=== PATIENT | female | born 1965 | race African-American/Black ===

== ENCOUNTER 2021-08-27 09:13 | Emergency (ER) | payer OTHER ==
[2021-08-27 09:33] VITALS: BMI 40.8
[2021-08-27] MEDS ORDERED: CASIRIVIMAB/IMDEVIMAB 10 ML in SODIUM CHLORIDE 100 ML IVPB ONE (09:56)
[2021-08-27 13:59] VITALS: BP 138/64; PULSE 80; TEMP 99.2
== END 2021-08-27 13:59 | disposition home or self-care (01) ==
LOC: JCOVINFU 09:13
DX: U07.1 COVID-19 (principal)
CPT/HCPCS: 99284-25; Q0240

== ENCOUNTER 2024-04-22 12:52 | Inpatient (IN) | payer OTHER ==
[2024-04-22 14:08] LABS: BASO % 0.7 % (0-2.0); EOS % 2.2 % (0-4.5); HEMATOCRIT 30.5 % (32.4-45.2); HEMOGLOBIN 9.8 GM/dL (10.7-15.3); LYMPH % 11.6 % (8-40); MCH 25.3 pg (25.7-33.7); MEAN CELL VOLUME 79.3 fl (80-96); MEAN PLT VOLUME 7.8 fl (7.5-11.1); NEUT % 78.5 % (42.8-82.8); PLATELET COUNT 269 10^3/uL (134-434); RBC 3.85 M/mm3 (3.60-5.2); RDW 19.6 % (11.6-15.6); VENOUS BASE EXCESS -10.6 mmol/L (-2-2); VENOUS O2 SATURATION 60.7 % (70-80); VENOUS PH 7.288 (7.310-7.410); WHITE BLOOD COUNT 11.6 K/mm3 (4.0-10.0)
[2024-04-22 14:34] LABS: CHLORIDE 104 mmol/L (98-107); POTASSIUM 5.8 mmol/L (3.5-5.1); SODIUM 138 mmol/L (136-145)
[2024-04-22 14:36] LABS: CALCIUM 8.4 mg/dL (8.5-10.1)
[2024-04-22 14:37] LABS: ALBUMIN 3.4 g/dl (3.4-5.0); ANION GAP 17 mmol/L (4-13); CO2 17 mmol/L (21-32); GLUCOSE,RANDOM 135 mg/dL (74-106); MAGNESIUM 2.3 mg/dL (1.8-2.4)
[2024-04-22 14:40] LABS: CREATININE 11.4 mg/dL (0.55-1.3); PHOSPHOROUS 8.1 mg/dL (2.5-4.9); SGOT/AST 15 U/L (15-37); SGPT/ALT 16 U/L (13-61)
[2024-04-22 14:41] LABS: BILIRUBIN,TOTAL 0.5 mg/dL (0.2-1); TOT PROT 7.4 g/dl (6.4-8.2)
[2024-04-22 14:43] LABS: ALK PHOS 162 U/L (45-117)
[2024-04-22] MEDS ORDERED: ACETAMINOPHEN INJECTION 100 ML IVPB ONE (15:02)
[2024-04-22] MEDS: ACETAMINOPHEN 1000 MG/100 ML BAG IVPB ONE (15:07)
[2024-04-22 15:25] LABS: N-TERMINAL BNP 56908.6 pg/ml (5-125)
[2024-04-22] MEDS: DEXTROSE 50%-WATER - 25 GM/50 ML VIAL IVPUSH ONE (15:40)
[2024-04-22] MEDS ORDERED: CALCIUM GLUCONATE 10% - 1,000 MG/10 ML VIAL ONE (15:41)
[2024-04-22] MEDS ORDERED: DEXTROSE 50%-WATER 25 GM/50 ML DISP.SYRIN ONE (15:41)
[2024-04-22] MEDS ORDERED: INSULIN REGULAR HUMAN 100 UNITS/ML *VIAL ONE (15:42)
[2024-04-22] MEDS ORDERED: ALBUTEROL SO4 2.5/IPRATROPIUM 0.5 INH SOL 3 ML VIAL.NEB. NEB ONE (15:48)
[2024-04-22] MEDS ORDERED: SODIUM ZIRCONIUM CYCLOSILICATE (LOKELMA) 10 GM PACKET ONE (15:52)
[2024-04-22] MEDS: INSULIN REGULAR HUMAN 100 UNITS/ML *VIAL IVPUSH ONE (16:05)
[2024-04-22] MEDS: DEXTROSE 50%-WATER 25 GM/50 ML DISP.SYRIN IVPUSH ONE (16:05)
[2024-04-22] MEDS: ALBUTEROL SO4 2.5/IPRATROPIUM 0.5 INH SOL 3 ML VIAL.NEB. NEB SCH (16:06)
[2024-04-22] MEDS: CALCIUM GLUCONATE 10% - 1,000 MG/10 ML VIAL IVPUSH ONE (16:06)
[2024-04-22] MEDS: SODIUM ZIRCONIUM CYCLOSILICATE (LOKELMA) 5 GM PACKET PO ONE (16:06)
[2024-04-22] MEDS ORDERED: ceFAZolin SODIUM 1 GM VIAL ONE (16:14)
[2024-04-22] MEDS: CEFAZOLIN 1 GM in DEXTROSE 5%-WATER - 50 ML IVPB ONE (16:20)
[2024-04-22] MEDS ORDERED: SODIUM CHLORIDE 250 ML IV PRN (16:27)
[2024-04-22] MEDS: HEPARIN NA (PORCINE) 5,000 UNITS/ML 1ML VIAL IVPUSH ONE (17:05)
[2024-04-22] MEDS: EPOETIN ALFA-EPBX 4,000 UNIT/ML VIAL SQ ONE (18:17)
[2024-04-22 20:37] VITALS: BMI 41.5
[2024-04-22] MEDS: hydrALAZINE HCL 50 MG TABLET (FP) PO SCH (22:10)
[2024-04-22] MEDS: INSULIN ASPART SLIDING SCALE (NOVOLOG) 1 VIAL SQ SCH (22:10)
[2024-04-22] MEDS: ATORVASTATIN CA 10 MG TABLET (FP) PO SCH (22:10)
[2024-04-22] MEDS: ACETAMINOPHEN 325 MG TABLET (FP) PO ONE (23:53)
[2024-04-23] MEDS: ISOSORBIDE MONONITRATE 60 MG TAB.SR.24H (FP) PO SCH (10:35)
[2024-04-23] MEDS: ACETAMINOPHEN 1000 MG/100 ML BAG IVPB PRN (11:49)
[2024-04-23] MEDS: CEFTRIAXONE 1 GM in DEXTROSE 5%-WATER - 50 ML IVPB SCH (18:02)
[2024-04-24] MEDS ORDERED: SODIUM CHLORIDE 250 ML IV PRN (09:10)
[2024-04-24] MEDS: HEPARIN NA (PORCINE) 5,000 UNITS/ML 1ML VIAL IVPUSH ONE (09:20)
[2024-04-24 09:45] LABS: HEMATOCRIT 29.5 % (32.4-45.2); HEMOGLOBIN 9.6 GM/dL (10.7-15.3); MCH 25.5 pg (25.7-33.7); MCHC 32.6 g/dl (32.0-36.0); MEAN CELL VOLUME 78.2 fl (80-96); MEAN PLT VOLUME 7.5 fl (7.5-11.1); PLATELET COUNT 226 10^3/uL (134-434); RBC 3.77 M/mm3 (3.60-5.2); RDW 19.5 % (11.6-15.6); WHITE BLOOD COUNT 9.3 K/mm3 (4.0-10.0)
[2024-04-24 10:00] LABS: CHLORIDE 99 mmol/L (98-107); POTASSIUM 4.8 mmol/L (3.5-5.1); SODIUM 136 mmol/L (136-145)
[2024-04-24 10:06] LABS: ANION GAP 14 mmol/L (4-13); BLOOD UREA NITROGEN 52.3 mg/dL (7-18); CO2 23 mmol/L (21-32)
[2024-04-24 10:07] LABS: GLUCOSE,RANDOM 112 mg/dL (74-106)
[2024-04-24 10:10] LABS: SGOT/AST 17 U/L (15-37)
[2024-04-24 10:11] LABS: CREATININE 8.8 mg/dL (0.55-1.3); SGPT/ALT 11 U/L (13-61); TOT PROT 6.7 g/dl (6.4-8.2)
[2024-04-24 10:13] LABS: BILIRUBIN,TOTAL 0.6 mg/dL (0.2-1)
[2024-04-24 10:14] LABS: ALK PHOS 136 U/L (45-117)
[2024-04-24] MEDS: EPOETIN ALFA-EPBX 4,000 UNIT/ML VIAL SQ ONE (10:54)
[2024-04-24] MEDS: ACETAMINOPHEN 1000 MG/100 ML BAG IVPB PRN (16:20)
[2024-04-25] MEDS ORDERED: SODIUM CHLORIDE 250 ML IV PRN (13:05)
[2024-04-25 18:38] LABS: CHOLESTEROL 113 mg/dL (50-200)
[2024-04-25 18:40] LABS: LDL CHOLESTEROL (ONLY SJRH) 47 mg/dL (5-100)
[2024-04-25 18:41] LABS: HDL CHOLESTEROL 49 mg/dL (40-60)
[2024-04-26 09:14] LABS: HEMATOCRIT 28.5 % (32.4-45.2); HEMOGLOBIN 9.1 GM/dL (10.7-15.3); MCH 25.5 pg (25.7-33.7); MCHC 31.8 g/dl (32.0-36.0); MEAN CELL VOLUME 80.2 fl (80-96); MEAN PLT VOLUME 7.8 fl (7.5-11.1); PLATELET COUNT 242 10^3/uL (134-434); RBC 3.56 M/mm3 (3.60-5.2); RDW 18.8 % (11.6-15.6); WHITE BLOOD COUNT 8.7 K/mm3 (4.0-10.0)
[2024-04-26 09:33] LABS: CHLORIDE 97 mmol/L (98-107); POTASSIUM 4.3 mmol/L (3.5-5.1); SODIUM 135 mmol/L (136-145)
[2024-04-26 09:39] LABS: CALCIUM 9.2 mg/dL (8.5-10.1)
[2024-04-26 09:40] LABS: ALBUMIN 2.6 g/dl (3.4-5.0); ANION GAP 12 mmol/L (4-13); BLOOD UREA NITROGEN 46.4 mg/dL (7-18); CO2 25 mmol/L (21-32); GLUCOSE,RANDOM 138 mg/dL (74-106)
[2024-04-26 09:43] LABS: SGOT/AST 13 U/L (15-37); SGPT/ALT 9 U/L (13-61)
[2024-04-26 09:44] LABS: BILIRUBIN,TOTAL 0.5 mg/dL (0.2-1)
[2024-04-26] MEDS: EPOETIN ALFA-EPBX 4,000 UNIT/ML VIAL SQ ONE (09:45)
[2024-04-26 09:46] LABS: ALK PHOS 113 U/L (45-117)
[2024-04-26 10:03] LABS: CREATININE 7.8 mg/dL (0.55-1.3)
[2024-04-26 13:20] VITALS: TEMP 98.4
[2024-04-26 20:34] VITALS: BP 133/75; PULSE 86; RESP 18
== END 2024-04-26 20:38 | disposition home or self-care (01) | DRG 391 ==
LOC: JER 12:52 → JERBED 16:01 → J4W 21:05 → OBSVTOIN 04-23 14:03
PROVIDERS: ADMIT Internal Medicine; ATTEND Internal Medicine
PROC: 5A1D70Z Performance of Urinary Filtration, Intermittent, Less than 6 Hours Per Day (ICD-10-PCS; principal; 2024-04-22)
PROC: 5A1D70Z Performance of Urinary Filtration, Intermittent, Less than 6 Hours Per Day (ICD-10-PCS; 2024-04-24)
PROC: 5A1D70Z Performance of Urinary Filtration, Intermittent, Less than 6 Hours Per Day (ICD-10-PCS; 2024-04-26)
DX: K57.32 Diverticulitis of large intestine without perforation or abscess without bleeding (principal); N18.6 End stage renal disease; I13.2 Hypertensive heart and chronic kidney disease with heart failure and with stage 5 chronic kidney disease, or end stage renal disease; I50.22 Chronic systolic (congestive) heart failure; Z68.41 Body mass index [BMI] 40.0-44.9, adult; E66.01 Morbid (severe) obesity due to excess calories; E78.5 Hyperlipidemia, unspecified; I25.10 Atherosclerotic heart disease of native coronary artery without angina pectoris; E87.5 Hyperkalemia; E11.22 Type 2 diabetes mellitus with diabetic chronic kidney disease; Z99.2 Dependence on renal dialysis
CPT/HCPCS: 36415; 73562-TC-RT-FY; 74176-TC; 76705-TC; 80053; 80061; 82565; 82803; 82962; 83036; 83735; 83880; 84100; 84443; 85025; 85027; 86705; 86803; 86850; 86900; 86901; 87340; 93005; 93010; 93306-TC; 99285-25; G0378; J0131; J1644; Q5106

== ENCOUNTER 2024-04-28 16:12 | Inpatient (IN) | payer OTHER ==
[2024-04-28] MEDS ORDERED: ACETAMINOPHEN INJECTION 100 ML IVPB ONE (17:31)
[2024-04-28] MEDS: ACETAMINOPHEN 1000 MG/100 ML BAG IVPB ONE (17:54)
[2024-04-28 18:21] LABS: BASO % 0.7 % (0-2.0); EOS % 1.1 % (0-4.5); HEMATOCRIT 31.9 % (32.4-45.2); LYMPH % 8.4 % (8-40); MCH 24.8 pg (25.7-33.7); MCHC 31.2 g/dl (32.0-36.0); MEAN CELL VOLUME 79.4 fl (80-96); MEAN PLT VOLUME 7.5 fl (7.5-11.1); MONO % 10.6 % (3.8-10.2); NEUT % 79.2 % (42.8-82.8); PLATELET COUNT 326 10^3/uL (134-434); RBC 4.02 M/mm3 (3.60-5.2); RDW 18.9 % (11.6-15.6); WHITE BLOOD COUNT 12.3 K/mm3 (4.0-10.0)
[2024-04-28 18:29] LABS: INR 1.15 (0.83-1.09); PROTHROMBIN TIME (PATIENT) 12.9 SEC (9.7-13.0)
[2024-04-28 18:49] LABS: CHLORIDE 98 mmol/L (98-107); POTASSIUM 4.4 mmol/L (3.5-5.1); SODIUM 136 mmol/L (136-145)
[2024-04-28 18:50] LABS: CALCIUM 8.9 mg/dL (8.5-10.1)
[2024-04-28 18:51] LABS: ANION GAP 12 mmol/L (4-13); BLOOD UREA NITROGEN 41.6 mg/dL (7-18); CO2 26 mmol/L (21-32); GLUCOSE,RANDOM 120 mg/dL (74-106); MAGNESIUM 2.3 mg/dL (1.8-2.4)
[2024-04-28 18:53] LABS: ALBUMIN 3.3 g/dl (3.4-5.0)
[2024-04-28 18:54] LABS: SGOT/AST 74 U/L (15-37); SGPT/ALT 24 U/L (13-61)
[2024-04-28 18:56] LABS: BILIRUBIN,TOTAL 0.7 mg/dL (0.2-1); TOT PROT 7.4 g/dl (6.4-8.2)
[2024-04-28 18:57] LABS: ALK PHOS 128 U/L (45-117); CREATININE 8.3 mg/dL (0.55-1.3)
[2024-04-29] MEDS: ACETAMINOPHEN 1000 MG/100 ML BAG IVPB ONE (05:37)
[2024-04-29] MEDS ORDERED: DOCUSATE SODIUM 100 MG CAPSULE (FP) PO PRN (05:54)
[2024-04-29 06:13] LABS: BASO % 1.2 % (0-2.0); EOS % 2.3 % (0-4.5); HEMATOCRIT 28.8 % (32.4-45.2); HEMOGLOBIN 9.2 GM/dL (10.7-15.3); LYMPH % 9.7 % (8-40); MCH 25.5 pg (25.7-33.7); MCHC 32.1 g/dl (32.0-36.0); MEAN CELL VOLUME 79.5 fl (80-96); MEAN PLT VOLUME 7.5 fl (7.5-11.1); MONO % 11.8 % (3.8-10.2); PLATELET COUNT 297 10^3/uL (134-434); RBC 3.62 M/mm3 (3.60-5.2); RDW 18.6 % (11.6-15.6); WHITE BLOOD COUNT 10.3 K/mm3 (4.0-10.0)
[2024-04-29 06:30] LABS: CHLORIDE 99 mmol/L (98-107); SODIUM 138 mmol/L (136-145)
[2024-04-29 06:32] LABS: ALBUMIN 2.9 g/dl (3.4-5.0); ANION GAP 15 mmol/L (4-13); BLOOD UREA NITROGEN 43.4 mg/dL (7-18); CALCIUM 8.3 mg/dL (8.5-10.1); CO2 24 mmol/L (21-32)
[2024-04-29 06:33] LABS: GLUCOSE,RANDOM 160 mg/dL (74-106)
[2024-04-29 06:35] LABS: SGOT/AST 54 U/L (15-37); SGPT/ALT 22 U/L (13-61)
[2024-04-29 06:37] LABS: BILIRUBIN,TOTAL 0.6 mg/dL (0.2-1); TOT PROT 6.3 g/dl (6.4-8.2)
[2024-04-29 06:38] LABS: ALK PHOS 108 U/L (45-117)
[2024-04-29 06:52] LABS: CREATININE 9.1 mg/dL (0.55-1.3)
[2024-04-29] MEDS ORDERED: ASPIRIN 81 MG CHEWABLE TABLETS ONE (09:38)
[2024-04-29] MEDS ORDERED: ISOSORBIDE MONONITRATE 60 MG TAB.SR.24H (FP) PO ONE ×2 (09:38→09:39)
[2024-04-29] MEDS: ASPIRIN 81 MG CHEWABLE TABLETS PO SCH (10:14)
[2024-04-29] MEDS: ISOSORBIDE MONONITRATE 60 MG TAB.SR.24H (FP) PO SCH (10:14)
[2024-04-29] MEDS ORDERED: SODIUM CHLORIDE 250 ML IV PRN (13:28)
[2024-04-29] MEDS: hydrALAZINE HCL 50 MG TABLET (FP) PO SCH (14:34)
[2024-04-29 20:16] VITALS: BMI 38.8
[2024-04-29] MEDS: ATORVASTATIN CA 10 MG TABLET (FP) PO SCH (21:25)
[2024-04-29] MEDS: oxyCODONE HCL 5 MG TABLET PO PRN (21:26)
[2024-04-30] MEDS: INSULIN ASPART SLIDING SCALE (NOVOLOG) 1 VIAL SQ SCH (18:14)
[2024-04-30 18:49] LABS: CHLORIDE 96 mmol/L (98-107); POTASSIUM 3.7 mmol/L (3.5-5.1); SODIUM 137 mmol/L (136-145)
[2024-04-30 18:51] LABS: ALBUMIN 2.8 g/dl (3.4-5.0); ANION GAP 12 mmol/L (4-13); CALCIUM 8.7 mg/dL (8.5-10.1); CO2 29 mmol/L (21-32)
[2024-04-30 18:52] LABS: BLOOD UREA NITROGEN 31.8 mg/dL (7-18); GLUCOSE,RANDOM 203 mg/dL (74-106)
[2024-04-30 18:54] LABS: SGPT/ALT 22 U/L (13-61)
[2024-04-30 18:55] LABS: SGOT/AST 40 U/L (15-37)
[2024-04-30 18:56] LABS: BILIRUBIN,TOTAL 0.5 mg/dL (0.2-1); TOT PROT 6.4 g/dl (6.4-8.2)
[2024-04-30 18:57] LABS: ALK PHOS 110 U/L (45-117)
[2024-04-30 18:59] LABS: CREATININE 7.5 mg/dL (0.55-1.3)
[2024-05-01] MEDS ORDERED: SODIUM CHLORIDE 250 ML IV PRN (10:33)
[2024-05-01] MEDS: HEPARIN NA (PORCINE) 5,000 UNITS/ML 1ML VIAL IVPUSH ONE (12:08)
[2024-05-01] MEDS: EPOETIN ALFA-EPBX 4,000 UNIT/ML VIAL SQ ONE (14:14)
[2024-05-01] MEDS ORDERED: DOCUSATE SODIUM 100 MG CAPSULE (FP) PO PRN (15:43)
[2024-05-01] MEDS: oxyCODONE HCL 5 MG TABLET PO PRN (17:22)
[2024-05-01] MEDS: hydrALAZINE HCL 50 MG TABLET (FP) PO SCH (22:21)
[2024-05-01] MEDS: ATORVASTATIN CA 10 MG TABLET (FP) PO SCH (22:21)
[2024-05-02] MEDS: ASPIRIN 81 MG CHEWABLE TABLETS PO SCH (09:54)
[2024-05-02] MEDS: ISOSORBIDE MONONITRATE 60 MG TAB.SR.24H (FP) PO SCH (09:54)
[2024-05-02] MEDS ORDERED: SODIUM CHLORIDE 250 ML IV PRN (14:25)
[2024-05-02 14:45] VITALS: RESP 18
[2024-05-03] MEDS ORDERED: REGADENOSON 0.4 MG/5 ML PRE-FILLED SYRINGE IVPUSH ONE (08:32)
[2024-05-03] MEDS: REGADENOSON 0.4 MG/5 ML PRE-FILLED SYRINGE IVPUSH ONE (08:57)
[2024-05-03] MEDS: HEPARIN NA (PORCINE) 5,000 UNITS/ML 1ML VIAL IVPUSH ONE (10:35)
[2024-05-03] MEDS: EPOETIN ALFA-EPBX 3,000 UNIT/ML VIAL SQ ONE (11:55)
[2024-05-04] MEDS: PANTOPRAZOLE 40 MG TABLET PO SCH (09:22)
[2024-05-05] MEDS: oxyCODONE HCL 5 MG TABLET PO ONE (02:08)
[2024-05-05 10:37] LABS: HEMATOCRIT 28.4 % (32.4-45.2); HEMOGLOBIN 8.9 GM/dL (10.7-15.3); MCH 24.7 pg (25.7-33.7); MCHC 31.2 g/dl (32.0-36.0); MEAN PLT VOLUME 7.9 fl (7.5-11.1); PLATELET COUNT 328 10^3/uL (134-434); RBC 3.59 M/mm3 (3.60-5.2); RDW 17.7 % (11.6-15.6); WHITE BLOOD COUNT 12.7 K/mm3 (4.0-10.0)
[2024-05-05 10:57] LABS: CHLORIDE 94 mmol/L (98-107); POTASSIUM 3.8 mmol/L (3.5-5.1); SODIUM 132 mmol/L (136-145)
[2024-05-05] MEDS ORDERED: SODIUM CHLORIDE 250 ML IV PRN (11:00)
[2024-05-05 11:09] LABS: ALBUMIN 2.5 g/dl (3.4-5.0); ANION GAP 14 mmol/L (4-13); BLOOD UREA NITROGEN 39.8 mg/dL (7-18); CO2 24 mmol/L (21-32); GLUCOSE,RANDOM 172 mg/dL (74-106)
[2024-05-05 11:11] LABS: BILIRUBIN,TOTAL 0.7 mg/dL (0.2-1); SGOT/AST 21 U/L (15-37); SGPT/ALT 13 U/L (13-61)
[2024-05-05 11:12] LABS: ALK PHOS 80 U/L (45-117); TOT PROT 6.2 g/dl (6.4-8.2)
[2024-05-05 11:13] LABS: CALCIUM 9.3 mg/dL (8.5-10.1); CREATININE 7.6 mg/dL (0.55-1.3)
[2024-05-05] MEDS: EPOETIN ALFA-EPBX 10,000 UNIT/ML VIAL SQ ONE (12:23)
[2024-05-05] MEDS: oxyCODONE HCL 5 MG TABLET PO PRN (13:18)
[2024-05-05 18:48] VITALS: BP 112/67; PULSE 98; TEMP 98.8
== END 2024-05-05 16:40 | DRG 291 ==
LOC: JER 16:12 → JERBED 21:16 → J4W 04-29 18:45 → OBSVTOIN 04-30 13:10 → J6S 05-01 16:10
PROVIDERS: ADMIT Family Medicine; ATTEND Family Medicine
PROC: 5A1D70Z Performance of Urinary Filtration, Intermittent, Less than 6 Hours Per Day (ICD-10-PCS; principal; 2024-04-29)
DX: I13.2 Hypertensive heart and chronic kidney disease with heart failure and with stage 5 chronic kidney disease, or end stage renal disease (principal); N18.6 End stage renal disease; I24.89 Other forms of acute ischemic heart disease; I25.10 Atherosclerotic heart disease of native coronary artery without angina pectoris; Z99.2 Dependence on renal dialysis; I50.22 Chronic systolic (congestive) heart failure; E66.01 Morbid (severe) obesity due to excess calories; Z68.38 Body mass index [BMI] 38.0-38.9, adult; E87.5 Hyperkalemia; D64.9 Anemia, unspecified; K76.0 Fatty (change of) liver, not elsewhere classified; M16.0 Bilateral primary osteoarthritis of hip; S42.145A Nondisplaced fracture of glenoid cavity of scapula, left shoulder, initial encounter for closed fracture; W18.2XXA Fall in (into) shower or empty bathtub, initial encounter; Y93.E1 Activity, personal bathing and showering; Y92.002 Bathroom of unspecified non-institutional (private) residence as the place of occurrence of the external cause; Y99.8 Other external cause status
CPT/HCPCS: 0241U-QW; 36415; 70450-TC; 71045-TC-FY; 72170-TC-FY; 73030-TC-LT-FY; 76705-TC; 78452-TC; 80053; 82962; 83735; 84443; 84484; 85025; 85027; 85610; 85730; 86704; 86706; 87340; 93005; 93010; 93017; 97116-GP; 97162-GP; 99285-25; A9502; G0378; J0131; J1644; J2785; Q5106

== ENCOUNTER 2024-05-06 14:48 | Emergency (ER) | payer OTHER ==
[2024-05-06 15:57] VITALS: BMI 38.0
[2024-05-07 00:44] VITALS: TEMP 98.5
[2024-05-07 01:43] VITALS: BP 106/65; PULSE 91; RESP 16
== END 2024-05-07 01:46 | disposition home or self-care (01) ==
LOC: JER 14:48
DX: I82.612 Acute embolism and thrombosis of superficial veins of left upper extremity (principal); M79.89 Other specified soft tissue disorders
CPT/HCPCS: 93971; 99284-25

== ENCOUNTER 2025-01-02 12:54 | Day surgery (SDC) | payer OTHER ==
[2025-01-02 13:50] LABS: ABSOLUTE IMMATURE GRANULOCYTES 0.02 x10^3/uL (0.0-0.031); BASOPHILS # 0.04 x10^3/uL (0.01-0.08); EOSINOPHIL % 2.2 % (0.7-5.8); EOSINOPHILS # 0.12 x10^3/uL (0.04-0.36); HEMATOCRIT 36.6 % (34.1-44.9); HEMOGLOBIN 11.6 g/dL (11.2-15.7); MCHC 31.7 g/dl (32.2-35.5); MEAN CELL VOLUME 74.7 fl (79.4-94.8); MONOCYTE # 0.51 x10^3/uL (0.24-0.86); MONOCYTE % 9.2 % (4.7-12.5); PLATELET COUNT 199 x10^3/uL (182-369); RDW 18.8 % (12.4-16.4)
[2025-01-02 14:01] LABS: INR 1.19 (0.83-1.09); PROTHROMBIN TIME (PATIENT) 13.1 SEC (9.7-13.0)
[2025-01-02 14:25] LABS: CHLORIDE 97 mmol/L (98-107); POTASSIUM 4.5 mmol/L (3.5-5.1); SODIUM 135 mmol/L (136-145)
[2025-01-02 14:27] LABS: ALBUMIN 3.4 g/dl (3.4-5.0)
[2025-01-02 14:28] LABS: ANION GAP 9 mmol/L (4-13); BLOOD UREA NITROGEN 45.2 mg/dL (7-18); CO2 29 mmol/L (21-32); GLUCOSE,RANDOM 113 mg/dL (74-106)
[2025-01-02 14:30] LABS: SGPT/ALT 13 U/L (13-61)
[2025-01-02 14:31] LABS: CREATININE 5.3 mg/dL (0.55-1.3); SGOT/AST 15 U/L (15-37)
[2025-01-02 14:32] LABS: BILIRUBIN,TOTAL 0.5 mg/dL (0.2-1); TOT PROT 7.5 g/dl (6.4-8.2)
[2025-01-02 14:33] LABS: ALK PHOS 368 U/L (45-117)
[2025-01-02] MEDS ORDERED: HEPARIN NA (PORCINE) 5,000 UNITS/ML 1ML VIAL ONE (14:49)
[2025-01-02] MEDS ORDERED: MIDAZOLAM HCL 2 MG/2 ML SINGLE DOSE VIAL ONE (15:18)
[2025-01-02] MEDS ORDERED: FENTANYL CITRATE/PF 50 MCG/ML VIAL ONE (15:22)
[2025-01-02] MEDS: MIDAZOLAM HCL 2 MG/2 ML SINGLE DOSE VIAL IVPUSH ONE (15:22)
[2025-01-02] MEDS: FENTANYL CITRATE/PF 50 MCG/ML VIAL IVPUSH ONE (15:28)
[2025-01-02 16:18] VITALS: BP 159/102; PULSE 99; RESP 15
== END 2025-01-02 16:18 | disposition home or self-care (01) ==
LOC: JRADIR 12:54
PROVIDERS: ATTEND Surgery
PROC: 037C3ZZ Dilation of Left Radial Artery, Percutaneous Approach (ICD-10-PCS; principal; 2025-01-02)
PROC: 057F3ZZ Dilation of Left Cephalic Vein, Percutaneous Approach (ICD-10-PCS; 2025-01-02)
DX: T82.858A Stenosis of other vascular prosthetic devices, implants and grafts, initial encounter (principal); I12.0 Hypertensive chronic kidney disease with stage 5 chronic kidney disease or end stage renal disease; E11.22 Type 2 diabetes mellitus with diabetic chronic kidney disease; N18.6 End stage renal disease; Z99.2 Dependence on renal dialysis; Z79.4 Long term (current) use of insulin
CPT/HCPCS: 36215; 36415; 36902; 36907; 37248; 75820-TC-FY; 80053; 85025; 85610; C1725; C1769; C1894

== ENCOUNTER 2025-04-25 17:47 | Inpatient (IN) | payer OTHER, MEDICARE ==
[2025-04-25 18:33] VITALS: RESP 18
[2025-04-25] MEDS ORDERED: LIDOCAINE 5% TOPICAL PATCH ONE (20:09)
[2025-04-25] MEDS ORDERED: ACETAMINOPHEN INJECTION 100 ML ONE (20:09)
[2025-04-25] MEDS: ACETAMINOPHEN 1000 MG/100 ML BAG IVPB ONE (20:56)
[2025-04-25] MEDS: LIDOCAINE 5% TOPICAL PATCH TP ONE (20:56)
[2025-04-25 21:07] LABS: BASOPHILS # 0.05 x10^3/uL (0.01-0.08)
[2025-04-25 21:17] LABS: ABSOLUTE IMMATURE GRANULOCYTES 0.02 x10^3/uL (0.0-0.031); EOSINOPHIL % 1.1 % (0.7-5.8); EOSINOPHILS # 0.07 x10^3/uL (0.04-0.36); MCHC 34.3 g/dl (32.2-35.5); MEAN CELL VOLUME 71.9 fl (79.4-94.8); MONOCYTE # 0.48 x10^3/uL (0.24-0.86); MONOCYTE % 7.9 % (4.7-12.5); RDW 20.7 % (12.4-16.4)
[2025-04-25 21:21] LABS: GLUCOSE,RANDOM 100 mg/dL (74-106)
[2025-04-25 21:22] LABS: CO2 25 mmol/L (21-32); TOT PROT 7.0 g/dl (6.4-8.2)
[2025-04-25 21:24] LABS: ALK PHOS 233 U/L (40-150)
[2025-04-25 21:27] LABS: CREATININE 3.16 mg/dL (0.55-1.3); SGOT/AST 26 U/L (5-34)
[2025-04-25 21:49] LABS: HCV DIAGNOSTIC IN-HOUSE W/RFLX NON-REACTIVE (NONREACTIVE); HIV INTERPRETATION NEGATIVE (NEGATIVE)
[2025-04-25] MEDS ORDERED: INSULIN (NOVOLOG) ASPART 100 UNITS/ML 10ML VIAL SQ SCH (22:00)
[2025-04-25] MEDS ORDERED: BISACODYL 5 MG TABLET.DR (FP) PO PRN (22:20)
[2025-04-25 23:38] LABS: SGPT/ALT < 6 U/L (0-55)
[2025-04-26 00:35] VITALS: BMI 31.5
[2025-04-26] MEDS: ACETAMINOPHEN 325 MG TABLET (FP) PO PRN (00:38)
[2025-04-26] MEDS: LIDOCAINE 5% TOPICAL PATCH TP ONE (00:39)
[2025-04-26] MEDS: APIXABAN 5 MG TABLET PO SCH (00:39)
[2025-04-26] MEDS: LIDOCAINE PATCH REMOVAL MC SCH (02:24)
[2025-04-26] MEDS: INSULIN ASPART SLIDING SCALE (NOVOLOG) 1 VIAL SQ SCH (02:25)
[2025-04-26] MEDS: LEVOTHYROXINE 200 MCG, LEVOTHYROXINE 25 MCG PO SCH (06:43)
[2025-04-26 07:44] LABS: MCHC 33.2 g/dl (32.2-35.5); MEAN CELL VOLUME 73.6 fl (79.4-94.8); MEAN PLT VOLUME 9.1 fl (9.4-12.3); RDW 19.6 % (12.4-16.4)
[2025-04-26 08:36] LABS: GLUCOSE,RANDOM 130.0 mg/dL (74-106)
[2025-04-26 08:38] LABS: CO2 24.0 mmol/L (21-32)
[2025-04-26 08:42] LABS: CREATININE 3.73 mg/dL (0.55-1.3)
[2025-04-26] MEDS ORDERED: LEVOTHYROXINE NA 25 MCG TABLET (FP) PO SCH (10:00)
[2025-04-26] MEDS ORDERED: ASPIRIN COATED 81 MG TABLET.EC PO SCH (10:00)
[2025-04-26] MEDS: SEVELAMER CARBONATE 800 MG TAB (FP) PO SCH (11:05)
[2025-04-26] MEDS: ASPIRIN COATED 81 MG TABLET.EC PO SCH (11:06)
[2025-04-26] MEDS: CARVEDILOL 3.125 MG TABLET (FP) PO SCH (11:07)
[2025-04-26] MEDS: MIDODRINE HCL 5 MG TABLET PO ONE (13:05)
[2025-04-26] MEDS ORDERED: SODIUM CHLORIDE 250 ML IV PRN (15:32)
[2025-04-26] MEDS: LIDOCAINE 5% TOPICAL PATCH TP SCH (18:35)
[2025-04-26] MEDS: LIDOCAINE PATCH REMOVAL MC ONE (18:36)
[2025-04-26] MEDS: ATORVASTATIN CA 20 MG TABLET (FP) PO SCH (22:12)
[2025-04-27] MEDS: LIDOCAINE PATCH REMOVAL MC SCH (04:40)
[2025-04-27 07:38] LABS: ABSOLUTE IMMATURE GRANULOCYTES 0.03 x10^3/uL (0.0-0.031); BASOPHILS # 0.05 x10^3/uL (0.01-0.08); EOSINOPHIL % 1.3 % (0.7-5.8); EOSINOPHILS # 0.09 x10^3/uL (0.04-0.36); MCHC 33.2 g/dl (32.2-35.5); MEAN CELL VOLUME 73.5 fl (79.4-94.8); MEAN PLT VOLUME 9.5 fl (9.4-12.3); MONOCYTE # 0.41 x10^3/uL (0.24-0.86); MONOCYTE % 5.9 % (4.7-12.5); RDW 20.4 % (12.4-16.4)
[2025-04-27 07:58] LABS: GLUCOSE,RANDOM 131 mg/dL (74-106); TOT PROT 7.2 g/dl (6.4-8.2)
[2025-04-27 07:59] LABS: CO2 23 mmol/L (21-32)
[2025-04-27 08:03] LABS: CREATININE 4.82 mg/dL (0.55-1.3); SGOT/AST 17 U/L (5-34); SGPT/ALT < 6 U/L (0-55)
[2025-04-27 08:17] LABS: ALK PHOS 252 U/L (40-150)
[2025-04-27] MEDS: HEPARIN NA (PORCINE) 5,000 UNITS/ML 1ML VIAL IVPUSH ONE (08:55)
[2025-04-27 09:02] LABS: HEPATITIS B SURF AG NON-MATERN NON-REACTIVE (NONREACTIVE)
[2025-04-27] MEDS ORDERED: HEPARIN NA (PORCINE) 5,000 UNITS/ML 1ML VIAL IVPUSH PRN ×2 (19:11)
[2025-04-27] MEDS ORDERED: HEPARIN INFUSION - 25,000 UNITS/500 ML INFUS.BAG IVPB SCH (19:15)
[2025-04-27] MEDS ORDERED: ENOXAPARIN NA (PORCINE) 80 MG/0.8 ML DISP.SYRIN SQ SCH (22:00)
[2025-04-27 22:18] LABS: INR 1.63 (0.83-1.09); PROTHROMBIN TIME (PATIENT) 17.8 SEC (9.7-13.0)
[2025-04-27 22:21] LABS: ACTIVATED PTT 33.4 SECONDS (25.2-36.5)
[2025-04-28 07:11] LABS: ABSOLUTE IMMATURE GRANULOCYTES 0.02 x10^3/uL (0.0-0.031); BASOPHILS # 0.05 x10^3/uL (0.01-0.08); EOSINOPHIL % 1.8 % (0.7-5.8); EOSINOPHILS # 0.12 x10^3/uL (0.04-0.36); MCHC 32.8 g/dl (32.2-35.5); MEAN CELL VOLUME 74.3 fl (79.4-94.8); MEAN PLT VOLUME 9.4 fl (9.4-12.3); MONOCYTE # 0.44 x10^3/uL (0.24-0.86); MONOCYTE % 6.6 % (4.7-12.5); RDW 19.8 % (12.4-16.4)
[2025-04-28 07:23] LABS: INR 1.49 (0.83-1.09); PROTHROMBIN TIME (PATIENT) 16.2 SEC (9.7-13.0)
[2025-04-28 07:25] LABS: ACTIVATED PTT 34.0 SECONDS (25.2-36.5)
[2025-04-28 08:28] LABS: GLUCOSE,RANDOM 112 mg/dL (74-106)
[2025-04-28 08:29] LABS: TOT PROT 6.5 g/dl (6.4-8.2)
[2025-04-28 08:30] LABS: CO2 26 mmol/L (21-32)
[2025-04-28 08:34] LABS: CREATININE 3.89 mg/dL (0.55-1.3); SGOT/AST 18 U/L (5-34); SGPT/ALT < 6 U/L (0-55)
[2025-04-28 08:52] LABS: ALK PHOS 224 U/L (40-150)
[2025-04-28] MEDS: DOXYCYCLINE INJECTION 100 MG in DEXTROSE 5%-WATER 100 ML IVPB SCH (22:01)
[2025-04-28 22:10] VITALS: BP 118/76; PULSE 78; TEMP 97.7
== END 2025-04-28 23:00 | disposition short-term general hospital (02) | DRG 551 ==
LOC: JER 17:47 → JERBED 21:24 → OBSVTOIN 21:24 → INTOOBSV 21:24 → J7W 23:55 → OBSVTOIN 04-27 16:20
PROVIDERS: ADMIT Internal Medicine; ATTEND Internal Medicine
PROC: 5A1D70Z Performance of Urinary Filtration, Intermittent, Less than 6 Hours Per Day (ICD-10-PCS; principal; 2025-04-27)
DX: M48.061 Spinal stenosis, lumbar region without neurogenic claudication (principal); J18.9 Pneumonia, unspecified organism; N18.6 End stage renal disease; I13.2 Hypertensive heart and chronic kidney disease with heart failure and with stage 5 chronic kidney disease, or end stage renal disease; I48.19 Other persistent atrial fibrillation; M54.16 Radiculopathy, lumbar region; E11.22 Type 2 diabetes mellitus with diabetic chronic kidney disease; I50.9 Heart failure, unspecified; D64.9 Anemia, unspecified; I25.10 Atherosclerotic heart disease of native coronary artery without angina pectoris; E03.9 Hypothyroidism, unspecified; E66.9 Obesity, unspecified; Z68.31 Body mass index [BMI] 31.0-31.9, adult; E04.2 Nontoxic multinodular goiter; G56.03 Carpal tunnel syndrome, bilateral upper limbs; E11.42 Type 2 diabetes mellitus with diabetic polyneuropathy; D25.9 Leiomyoma of uterus, unspecified; R29.6 Repeated falls; Z99.2 Dependence on renal dialysis
CPT/HCPCS: 36415; 70450-TC; 71045-TC-FY; 71250-TC; 72131-TC; 72148-TC; 72170-TC-FY; 73502-TC-RT-FY; 80048; 80053; 82962; 83036; 83735; 84100; 84443; 85025; 85027; 85610; 85730; 86704; 86803; 87340; 87389; 87517; 93005; 93010; 97116-GP; 97162-GP; 99285-25; G0378; J1644